=== PATIENT | male | born 1980 | race Caucasian/White ===

== ENCOUNTER 2016-12-06 04:40 | Emergency (ER) | payer OTHER ==
[~2016-12-06] VITALS: Ht 185.4 cm; Wt 70.4 kg
[~2016-12-06 04:40] MED LIST: ULTRAM50 MG PO; VENTOLIN HFA18 GM IH; ZOFRAN ODT4 MG PO
[2016-12-06] MEDS ORDERED: MOTRIN800 MG PO (05:30)
[2016-12-06] MEDS ORDERED: NORCO 5/3251 TABLET PO (05:30)
[2016-12-06 05:46] VITALS: BP 127/73
== END 2016-12-06 05:47 | disposition home or self-care (01) ==
LOC: EME 04:40
DX: S60.222A Contusion of left hand, initial encounter (principal); W23.0XXA Caught, crushed, jammed, or pinched between moving objects, initial encounter; Y99.0 Civilian activity done for income or pay
CPT/HCPCS: 73130; 99281; 99284

== ENCOUNTER 2017-01-04 13:17 | Emergency (ER) | payer OTHER ==
[~2017-01-04] VITALS: Ht 185.4 cm; Wt 70.8 kg
[~2017-01-04 13:17] MED LIST changes: +MOTRIN800 MG PO; +NORCO 5/3251 TABLET PO
[2017-01-04] MEDS ORDERED: MOTRIN600 MG PO (16:10)
[2017-01-04] MEDS ORDERED: NORCO 5/3251 TABLET PO (16:10)
[2017-01-04] MEDS ORDERED: FLEXERIL10 MG PO (16:10)
[2017-01-04 16:22] VITALS: BP 112/68
== END 2017-01-04 16:23 | disposition home or self-care (01) ==
LOC: EME 13:17
DX: S39.012A Strain of muscle, fascia and tendon of lower back, initial encounter (principal); X58.XXXA Exposure to other specified factors, initial encounter; Y93.72 Activity, wrestling; J45.909 Unspecified asthma, uncomplicated
CPT/HCPCS: 99281; 99283

== ENCOUNTER 2017-01-05 22:16 | Emergency (ER) | payer OTHER ==
[~2017-01-05] VITALS: Ht 185.4 cm; Wt 72.8 kg
[~2017-01-05 22:16] MED LIST changes: +FLEXERIL10 MG PO; +MOTRIN600 MG PO
[2017-01-05 22:46] LABS: ADD MIUA? YES; BILIRUBIN NEGATIVE; BLOOD SMALL; COLOR YELLOW ((YELLOW)); GLUCOSE (STRIP) NEGATIVE; KETONES NEGATIVE; LEUKOCYTES NEGATIVE; NITRITE NEGATIVE; PROTEIN (STRIP) 30; SPECIFIC GRAVITY 1.018 (1.000-1.030); UROBILINOGEN 0.2 MG/DL (0.2-1.0)
[2017-01-05 22:50] LABS: BACTERIA NONE SEEN /HPF; EPITHELIAL CELLS NONE SEEN /HPF; MUCUS TRACE /LPF; UCUL ADDED? NO; WHITE BLOOD CELLS 0-5 /HPF (0-5)
[2017-01-06 01:31] LABS: HEMATOCRIT 41.6 % (38.0-50.0); MCH 31.5 PG (29.0-34.0); MCHC 34.9 G/DL (30.0-36.0); MCV 90.4 FL (86-99); MEAN PLAT.VOLUME 9.4 uM^3 (9.0-12.4); PLATELET COUNT 275 K/uL (156-360); RBC DIS.WIDTH-CV 11.5 % (11.8-14.6); RBC DIS.WIDTH-SD 38.1 % (39-53); WHITE BLOOD COUNT 7.2 K/uL (4.1-10.2)
[2017-01-06 01:42] LABS: CHLORIDE 107 mEq/L (99-109); SODIUM 140 mEq/L (136-147)
[2017-01-06 01:44] LABS: GLUCOSE 97 mg/dL (70-99)
[2017-01-06 01:46] LABS: ANION GAP 8 MEQ/L (2-14)
[2017-01-06 01:48] LABS: GFR ESTIMATE (CALCULATED) > 59 mL/min/
[2017-01-06 01:49] LABS: UREA NITROGEN (BUN) 10 mg/dL (9-23)
[2017-01-06] MEDS ORDERED: PERCOCET 5/31 TABLET PO (03:17)
[2017-01-06] MEDS ORDERED: MEDROL DOSEPAK4 MG PO (03:18)
[2017-01-06 03:46] VITALS: BP 105/82
== END 2017-01-06 03:56 | disposition home or self-care (01) ==
LOC: EME 22:16
PROVIDERS: Physician Assistant
DX: M54.5 Low back pain (principal); R10.9 Unspecified abdominal pain; R31.9 Hematuria, unspecified; F17.200 Nicotine dependence, unspecified, uncomplicated
CPT/HCPCS: 74176; 80048; 81003; 85027; 99281; 99284; J1885; J2270; J2405; J7030

== ENCOUNTER 2017-02-13 17:05 | Emergency (ER) | payer OTHER ==
[~2017-02-13] VITALS: Ht 185.4 cm; Wt 70.8 kg
[~2017-02-13 17:05] MED LIST changes: +MEDROL DOSEPAK4 MG PO; +PERCOCET 5/31 TABLET PO
[2017-02-13] MEDS ORDERED: FLEXERIL10 MG PO (18:30)
[2017-02-13] MEDS ORDERED: ULTRAM50 MG PO (18:30)
[2017-02-13 19:07] VITALS: BP 101/70
== END 2017-02-13 19:06 | disposition home or self-care (01) ==
LOC: EME 17:05
DX: S39.012A Strain of muscle, fascia and tendon of lower back, initial encounter (principal); W01.0XXA Fall on same level from slipping, tripping and stumbling without subsequent striking against object, initial encounter; Y93.89 Activity, other specified
CPT/HCPCS: 72100; 99281; 99284; J1885

== ENCOUNTER 2018-03-15 18:50 | Emergency (ER) | payer OTHER ==
[~2018-03-15] VITALS: Ht 185.4 cm; Wt 71.6 kg
[2018-03-15] MEDS ORDERED: MOTRIN600 MG PO (21:51)
[2018-03-15] MEDS ORDERED: SKELAXIN800 MG PO (21:51)
[2018-03-15] MEDS ORDERED: AMOXICILLIN875 MG PO (21:59)
[2018-03-15 22:00] VITALS: BP 118/69
== END 2018-03-15 22:00 | disposition home or self-care (01) ==
LOC: EME 18:50
DX: S16.1XXA Strain of muscle, fascia and tendon at neck level, initial encounter (principal); V49.50XA Passenger injured in collision with unspecified motor vehicles in traffic accident, initial encounter; Y92.410 Unspecified street and highway as the place of occurrence of the external cause; J45.909 Unspecified asthma, uncomplicated; Z88.5 Allergy status to narcotic agent; F17.200 Nicotine dependence, unspecified, uncomplicated
CPT/HCPCS: 72052; 99281; 99284